=== PATIENT | male | born 2000 | race African-American/Black ===

== ENCOUNTER 2020-02-15 19:59 | Emergency (ER) | payer MEDICAID, OTHER ==
[~2020-02-15] VITALS: Ht 182.9 cm; Wt 73.0 kg
[2020-02-15] MEDS ORDERED: ONDANSETRON HCL 4MG/2ML INJ IV STA (21:39)
[2020-02-15] MEDS ORDERED: MORPHINE SULFATE 4 MG/ML CPJ (NOT FOR IM USE) IV STA (21:39)
[2020-02-15] MEDS ORDERED: SODIUM CHLORIDE 0.9% 1,000 ML IV ONE (21:45)
[2020-02-15] MEDS ORDERED: TETANUS, DIPHTHERIA, PERTUSSIS VAC/PF 0.5ML (>7YR OLD) IM ONE (21:45)
[2020-02-15] MEDS ORDERED: BACITRACIN ZINC OINT UDPKT TOP ONE (22:45)
[2020-02-15] MEDS ORDERED: LIDOCAINE 1%/EPI 1:100,000 10 ML VIAL IJ ONE (22:45)
[2020-02-15] MEDS ORDERED: LIDOCAINE HCL/PF 1% 10 MG/ML 5ML VIAL IJ ONE (23:45)
[2020-02-16] VITALS: BP 128/87
== END 2020-02-16 00:20 | disposition home or self-care (01) ==
LOC: ER 19:59
DX: S91.312A Laceration without foreign body, left foot, initial encounter (principal); W34.09XA Accidental discharge from other specified firearms, initial encounter; Y93.89 Activity, other specified; Y92.89 Other specified places as the place of occurrence of the external cause; Y99.8 Other external cause status
CPT/HCPCS: 12001; 73610; 73630; 90471; 90715; 93005; 96361; 96374; 96375; 99285; J2270; J2405; J3490; J7030

== ENCOUNTER 2020-02-29 19:42 | Emergency (ER) | payer MEDICAID ==
[~2020-02-29] VITALS: Ht 175.3 cm; Wt 78.0 kg
[2020-02-29 21:09] VITALS: BP 120/73
== END 2020-02-29 21:15 | disposition home or self-care (01) ==
LOC: ER 19:42
DX: Z48.02 Encounter for removal of sutures (principal)
CPT/HCPCS: 99281

== ENCOUNTER 2021-04-13 22:44 | Emergency (ER) | payer MEDICAID ==
[~2021-04-13] VITALS: Ht 177.8 cm; Wt 78.0 kg
[2021-04-13 23:20] VITALS: BP 129/80
== END 2021-04-13 23:37 | disposition home or self-care (01) ==
LOC: ER 22:44
DX: Z48.02 Encounter for removal of sutures (principal)
CPT/HCPCS: 99281